=== PATIENT | female | born 1985 | race Two or more races ===

== ENCOUNTER 2019-07-30 15:35 | Inpatient (IN) ==
[2019-07-30] MEDS ORDERED: OXYTOCIN 30 UNITS/500 ML BAG IV PRN ×3 (16:19→22:47)
[2019-07-30] MEDS: LACTATED RINGER'S 1,000 ML IV PRN ×2 (16:20→17:22)
[2019-07-30] MEDS ORDERED: fentaNYL citrate 100 MCG/2 ML VIAL ONE (16:29)
[2019-07-30] MEDS ORDERED: ePHEDrine sulfate 50 MG/ML AMP ONE (16:29)
[2019-07-30] MEDS ORDERED: BUPIVACAINE 0.25% 30 ML VIAL ONE (16:29)
[2019-07-30] MEDS ORDERED: fentaNYL 2MCG/ML ROPIV 1.25MG/ML 100 ML BAG EPI ONE (16:30)
[2019-07-30 16:45] LABS: Hematocrit (blood only) 32.8 % (37-47); Hemoglobin 10.7 g/dL (12.0-16.0); Mean Corpuscular Hemoglobin 23.9 pg (25-34); Mean Corpuscular Volume 73.4 fL (80-100); Mean Platelet Volume 11.4 fL (7.4-10.4); Platelet Count 221 K/uL (130-400); RDW Coefficient of Variation 15.5 % (11.5-14.5); Red Blood Count 4.47 M/uL (4.2-5.4); White Blood Count 12.11 K/uL (4.8-10.8)
[2019-07-30] MEDS ORDERED: DEXTROSE 50% 50 ML SYRINGE IV PRN ×2 (16:47→17:15)
[2019-07-30] MEDS ORDERED: SODIUM CHLORIDE 0.9% 1000ML 1,000 ML IV PRN (16:47)
[2019-07-30] MEDS ORDERED: DEXTROSE 5% 1,000 ML IV PRN (16:47)
[2019-07-30] MEDS ORDERED: INSULIN REGULAR 250 UNITS in SODIUM CHLORIDE 0.9% 247.5 ML IV PRN (16:47)
--- NOTE | 2019-07-30 16:49 | History & Physical Report ---
Date of Service July 30, 2019 Assessment & Plan (1) Insulin controlled gestational diabetes mellitus (GDM) during : Q1hr FSBG and manage pr protocol (2) labor in third trimester: SROM/Labor at 36 4/7. No abx as she is known GBS neg. Pitocin augmentation as membranes broken. Epidural on request. History of Present Illness Primary Care Provider: [facility] 34yo @ 36 4/7 with SROM, Labor. GBS known negative. GDM on insulin. Fluid is clear, +FM, +CTX, -VB. Allergies Allergy/AdvReac Type Severity Reaction Status Date / Time No Known Allergies Allergy Verified 07/30/19 14:49 Home Medications Home Medications Medication Instructions Recorded Confirmed Type PNV cmb#95-ferrous fumarate-FA 1 tab PO DAILY 05/15/19 07/30/19 History [] ferrous sulfate [Iron (ferrous 325 mg PO DAILY 05/15/19 07/30/19 History sulfate)] acetone (urine) test #50 ea 06/21/19 07/30/19 Rx blood sugar diagnostic #120 ea 06/21/19 07/30/19 Rx lancets 33 gauge #120 ea 06/21/19 07/30/19 Rx insulin syringe-needle U-100 0.3 #50 ea 07/20/19 07/30/19 Rx mL 31 gauge x 09/28" Patient History Social History Preferred Language: Togolese Communication Ability: Effective [employer]ion Weigher Required: No Beliefs That Will Affect Care: None marital status: marital status details: Codie Funk (34) [phone] Current Living Situation: Family Current Living Situation Comment: no pets current occupational status: unemployed current occupation: homemaker Other Information That Helps Us Care for You: No Feels Safe at Home: Yes Safety Concerns: Feels Safe At This Time Smoking Status: Never smoker Second Hand Exposure: No ; Hx Alcohol Use: No Hx Substance Use: No Review of Systems All systems reviewed & are unremarkable except as noted in HPI & below Physical Exam Constitutional: WD/WN, vitals as above Eyes: PERRL, conjunctivae normal, anicteric sclerae ENMT: external ear and nose normal, oropharynx normal Neck: supple Respiratory: normal respiratory effort and able to speak in complete sentences; no respiratory distress Cardiovascular: Rate/Rhythm: regular rate and regular rhythm Gastrointestinal (Abdomen): Gravid / AGA, nontender Musculoskeletal: no cyanosis or clubbing, extremities motor strength 5/5 Skin: no rashes, warm and dry Neurologic: patellar DTR's 2+ bilat, sensation intact Psychiatric: A+Ox3, euthymic affect Genitourinary: Speculum/Bimanual Exam: no vaginal lesions, no vaginal bleeding and uterus nontender OB Exam Abdomen: + vertex (normal vertex presentation confirmed by exam), + estimated weight (6-7) and + regular contractions (Q3) Manual OB Exam: + cervical dilation 3 cm, + cervical effacement 50%, + station -2 and + amniotic fluid clear OB Exam Monitor Tracing: + external FHT monitor used, + external uterine monitor used and + category I Lymphatic: no cervical or axillary lymphadenopathy Results & Data Vital Signs (Past 12 Hours) Vital Signs Temp Pulse Resp BP 07/30/19 16:30 18 07/30/19 16:00 18 07/30/19 15:57 98.2 F 18 07/30/19 15:48 104 H 119/77 Coding Level of Care Code None Diagnoses Insulin controlled gestational diabetes mellitus (GDM) during O24.414 Trimester: third trimester labor in third trimester O60.14X0 Fetus number: single or unspecified fetus labor delivery status: with delivery in third trimester (1) Insulin controlled gestational diabetes mellitus (GDM) during Trimester: third trimester Qualified Code(s): O24.414 - Gestational diabetes mellitus in , insulin controlled (2) labor in third trimester Fetus number: single or unspecified fetus labor delivery status: with delivery in third trimester Qualified Code(s): O60.14X0 - labor third trimester with delivery third trimester, not applicable or unspecified
--- NOTE | 2019-07-30 16:51 | Anesthesiology Consultation ---
Date of Service July 30, 2019 Assessment & Plan (1) Insulin controlled gestational diabetes mellitus (GDM) during : (2) : Chart Review Chart Review: Acceptable Risk for Surgery and Acceptable Risk for Labor Epidural Consults Requested none ASA [id number] Proposed Anesthesia Anesthesia Type: CSE Risk / Benefits Reviewed With: PT / POA / Parent / Guardian, Accepts Plan and Informed Consent Obtained History Surgery labor epidural Height/Weight Height: 5 ft 8 in Weight: 78.471 kg Allergies Allergy/AdvReac Type Severity Reaction Status Date / Time No Known Allergies Allergy Verified 07/30/19 14:49 Medications Home Medications Medication Instructions Recorded Confirmed Last Taken PNV cmb#95-ferrous fumarate-FA 1 tab PO DAILY 05/15/19 07/30/19 07/29/19 [] ferrous sulfate [Iron (ferrous 325 mg PO DAILY 05/15/19 07/30/19 07/29/19 sulfate)] acetone (urine) test #50 ea 06/21/19 07/30/19 Unknown blood sugar diagnostic #120 ea 06/21/19 07/30/19 Unknown lancets 33 gauge #120 ea 06/21/19 07/30/19 Unknown insulin syringe-needle U-100 0.3 #50 ea 07/20/19 07/30/19 Unknown mL 31 gauge x 09/28" Active Medications Generic Name Dose Route Start Last Admin Trade Name Freq PRN Reason Stop Dose Admin Lactated Ringer's 1,000 mls @ 125 mls/hr 07/30/19 16:19 07/30/19 16:20 Lr IV 08/01/19 16:18 999 mls/hr .Q8H PRN Administration L&D Protocol Protocol NPO Date Last Intake of Fluids: 07/30/19 Time Last Intake of Fluids: 16:00 Date Last Intake of Solids: 07/30/19 Time Last Intake of Solids: 12:00 Last Intake of Solids Comment: Egss Past Medical History Medical History (Updated 07/30/19 @ 16:51 by Renetta Crenshaw MD) Insulin controlled gestational diabetes mellitus (GDM) during Varicella Exercise / Class Metabolic Activity II 4-5 Yardwork/Stairs/Walk up hill Past Surgical History Surgical History (Updated 07/30/19 @ 16:50 by Abigail Reyes DO) H/O wisdom tooth extraction Past Anesthesia History No Hx of Anesthesia Complications and No Family Hx of Anesthesia Complications History of PONV No Hx of PONV and No Hx of Motion Sickness Social History Smoking Status: Never smoker Hx Alcohol Use: No Hx Substance Use: No Physical Exam Vital Signs Last Vital Signs Temp 36.8 C 07/30/19 15:57 Pulse 104 H 07/30/19 15:48 Resp 18 07/30/19 16:00 BP 119/77 07/30/19 15:48 ENMT Mouth: no TMJ abnormality Thyromental Distance: > or= 3.5 Finger Breadths Mallampati Class: III Neck normal visual inspection and trachea midline; neck extension not limited Respiratory normal respiratory effort Auscultation: lungs clear to auscultation bilaterally Cardiovascular Rate/Rhythm: regular rate and regular rhythm Heart Sounds: no murmur Musculoskeletal Spine: normal cervical ROM Extremities: full ROM of extremities Neurologic moves all extremities Psychiatric Orientation: alert and oriented x 3
[2019-07-30] MEDS ORDERED: GLUCAGON FOR INJ 1 MG VIAL IM PRN (17:15)
[2019-07-30] MEDS ORDERED: GLUCOSE 10 TABS/TUBE PO PRN (17:15)
[2019-07-30] MEDS ORDERED: CARBOHYDRATES FOR HYPOGLYCEMIA PO PRN (17:15)
[2019-07-30] MEDS ORDERED: GLUCOSE 40% GEL 15 GM TUBE PO PRN (17:15)
[2019-07-30] MEDS ORDERED: NALBUPHINE HCL INJ 10 MG/ML AMP IV PRN (17:17)
[2019-07-30] MEDS ORDERED: NALOXONE HCL 0.4 MG/1 ML VIAL/CARP IV PRN (17:17)
[2019-07-30] MEDS ORDERED: PROMETHAZINE HCL 25 MG in SODIUM CHLORIDE 0.9% 50 ML IV PRN (17:17)
[2019-07-30] MEDS ORDERED: DiphenhydrAMINE HCL 50 MG/ML VIAL IV PRN (17:17)
[2019-07-30] MEDS ORDERED: METOCLOPRAMIDE HCL 20 MG in SODIUM CHLORIDE 0.9% 50 ML IV PRN (17:17)
[2019-07-30] MEDS ORDERED: NALOXONE HCL 1 MG in SODIUM CHLORIDE 0.9% 1000ML 1,000 ML IV PRN (17:17)
[2019-07-30] MEDS ORDERED: ePHEDrine sulfate 50 MG/ML AMP IV PRN (17:17)
[2019-07-30] MEDS ORDERED: ONDANSETRON INJ 2 MG/ML 2 ML VIAL IV PRN (17:17)
[2019-07-30] MEDS ORDERED: fentaNYL 2MCG/ML ROPIV 1.25MG/ML 100 ML BAG EPI PRN (17:17)
[2019-07-30 17:20] LABS: Mean Corpuscular Hgb Conc 32.6 g/dL (32-36)
--- NOTE | 2019-07-30 22:11 | Delivery Summary ---
Vaginal Delivery Summary Date of Service July 30, 2019 Vaginal Delivery Summary DIAGNOSES: 1. Clark intrauterine at 36w4d gestation. 2. Spontaneous onset of labor. 3. Group B Streptococcus Neg. PROCEDURE: Spontaneous vaginal delivery and repair of second degree laceration. SURGEON: Renetta Crenshaw MD. PNP: None. ESTIMATED BLOOD LOSS: 300 mL. COMPLICATIONS: None. PLACENTA: Spontaneous and intact with a 3-vessel cord. DISPOSITION: Stable to labor and delivery. DESCRIPTION: The patient pushed well and brought the head to in OA position. The infant's head was allowed to deliver with contraction force and no further active pushing, with the perineum protected during this time. The shoulders delivered easily with a maternal pushing effort. There was no nuchal cord. The left shoulder was anterior. The shoulders and body delivered without any difficulty, and the infant was placed on the maternal abdomen. It was vigorous and moving all extremities, and making respiratory efforts. The cord was doubly clamped by the MD and then cut by the FOB. The placenta delivered spontaneously and was noted to be intact and with a 3VC. The cervix, vagina and perineum were examined and were found to have a second degree la ceration that was repaired in usual fashion with vicryl suture. The fundus was firm and lochia minimal immediately after delivery.
[2019-07-30] MEDS ORDERED: DIPHTHERIA/TETANUS/PERTUSSIS 0.5 ML SYR/VIAL IM ONE (22:47)
[2019-07-30] MEDS ORDERED: BENZOCAINE 20% AER SPR 82.5 GM CAN EXT PRN (22:47)
[2019-07-30] MEDS ORDERED: ACETAMINOPHEN 325 MG TAB PO PRN (22:47)
[2019-07-30] MEDS ORDERED: OXYCODONE/ACETAMINOPHEN 5mg/325mg TAB PO PRN (22:47)
[2019-07-30] MEDS ORDERED: SUPERCREAM 0.870% 15 GM JAR EXT PRN (22:47)
[2019-07-30] MEDS ORDERED: HYDROCORTISONE ACETATE 25 MG SUPP PR PRN (22:47)
--- NOTE | 2019-07-31 05:57 | Obstetrical Progress Note ---
Date of Service <Rose Reichtian - Last Filed: 07/31/19 06:50> July 31, 2019 Assessment & Plan <Rose Lopez - Last Filed: 07/31/19 06:50> (1) Encounter for care and examination after delivery: 34 yo PPD #1 following at 36.4 weeks, with complaints of poor milk production and chills. - no measured fevers. - Will have clinical documentation specialist see her today for help with . - Will continue routine care. - following d/c will require f/u with Dr. Crenshaw for visit. Subjective <Rose ReichDO tian - Last Filed: 07/31/19 06:50> 34 yo female ; PPD # 1 following vaginal delivery at 36.4weeks; doing well this AM; no abdominal cramping/pain; voiding well; tolerating meals overnight, able to ambulate some within the room. Reports that is not going well and that she feels she is not producing. Also felt chilly overnight but did not have any measured fevers. Review of Systems Constitutional: denies fever, sweats, headache Respiratory: denies SOB, difficulty breathing Cardiac: denies CP, chest palpitations, chest pressure Breast: denies breast pain : denies dysuria Physical Exam <Rsoe Lopez - Last Filed: 07/31/19 06:50> General: patient is alert and oriented, in NAD Cardiac: +S1/S2, no murmurs rubs or gallops Respiratory: lungs CTA b/l, anteriorly and posteriorly, no wheezes rales or rhonchi, no increased work of breathing, symmetric chest rise, no respiratory distress Abdomen: soft, NT, +bowel sounds Uterus: uterine fundus firm, palpable below the level of the umbilicus Lower Extremities: no LE edema or swelling, no deep calf pain, Tiffani's sign negative b/l Results & Data <Rose ReichDO tian - Last Filed: 07/31/19 06:50> Vital Signs (Past 12 Hours) Vital Signs Temp Pulse Pulse Resp BP BP Pulse Ox 07/31/19 03:29 37.3 C 80 16 95/60 L 07/31/19 00:55 36.6 C 79 18 93/58 L 07/31/19 00:26 81 100/58 L 07/31/19 00:11 82 18 99/58 L 07/30/19 23:56 82 103/64 07/30/19 23:41 83 18 101/60 07/30/19 23:26 89 104/68 07/30/19 23:11 92 H 18 108/61 07/30/19 22:56 81 18 103/64 07/30/19 22:41 86 18 98/68 L 07/30/19 22:27 86 18 109/74 07/30/19 22:13 94 H 100 07/30/19 22:11 99 H 18 97/64 L 07/30/19 22:08 105 H 100 07/30/19 22:03 87 100 07/30/19 21:58 91 H 100 07/30/19 21:56 96 H 110/62 07/30/19 21:53 84 100 07/30/19 21:51 94 H 87 L 07/30/19 21:48 100 H 100 07/30/19 21:43 85 100 07/30/19 21:41 91 H 108/65 07/30/19 21:38 86 100 07/30/19 21:33 81 100 07/30/19 21:28 83 100 07/30/19 21:26 82 101/57 L 07/30/19 21:23 83 100 07/30/19 21:18 82 100 07/30/19 21:13 84 100 07/30/19 21:11 83 92/53 L 07/30/19 21:08 89 100 07/30/19 21:03 102 H 100 07/30/19 20:58 89 100 07/30/19 20:57 36.7 C 81 18 109/66 07/30/19 20:53 85 100 07/30/19 20:48 88 100 07/30/19 20:43 96 H 100 07/30/19 20:41 84 111/69 07/30/19 20:38 81 100 07/30/19 20:33 94 H 100 07/30/19 20:28 86 100 07/30/19 20:26 82 100/59 L 07/30/19 20:23 89 100 07/30/19 20:18 92 H 100 07/30/19 20:13 81 100 07/30/19 20:11 81 107/65 07/30/19 20:08 91 H 100 07/30/19 20:03 107 H 100 07/30/19 19:58 88 100 07/30/19 19:56 88 108/69 07/30/19 19:53 87 100 07/30/19 19:48 87 100 07/30/19 19:43 86 100 07/30/19 19:42 89 90/53 L 07/30/19 19:38 87 100 07/30/19 19:33 99 H 100 07/30/19 19:28 90 100 07/30/19 19:26 86 97/56 L 07/30/19 19:23 85 100 07/30/19 19:18 87 100 07/30/19 19:13 87 100 07/30/19 19:11 36.6 C 93 H 18 102/58 L 07/30/19 19:08 91 H 100 07/30/19 19:03 101 H 100 07/30/19 19:00 18 07/30/19 18:58 89 100 07/30/19 18:56 90 112/66 07/30/19 18:53 89 100 07/30/19 18:48 83 100 07/30/19 18:46 77 112/57 L 07/30/19 18:43 82 81/52 L 100 07/30/19 18:41 81 89/54 L 07/30/19 18:38 76 100 07/30/19 18:33 77 100 07/30/19 18:30 18 07/30/19 18:28 98 H 103/63 100 07/30/19 18:23 82 100 07/30/19 18:18 95 H 100 07/30/19 18:13 81 100 07/30/19 18:11 87 91/57 L 07/30/19 18:08 86 100 07/30/19 18:03 83 100 07/30/19 18:00 18 07/30/19 17:58 88 100 Laboratory Results Laboratory Results - last 24 hr 07/30/19 07/30/19 07/30/19 16:27 16:51 17:49 WBC 12.11 H RBC 4.47 Hgb 10.7 L Hct 32.8 L MCV 73.4 L MCH 23.9 L MCHC 32.6 RDW Std Deviation 41.0 RDW Coeff of Priscilla 15.5 H Plt Count 221 MPV 11.4 H POC Glucose 90 84 07/30/19 07/30/19 07/30/19 18:53 19:54 21:00 WBC RBC Hgb Hct MCV MCH MCHC RDW Std Deviation RDW Coeff of Priscilla Plt Count MPV POC Glucose 96 94 95 Medications Administered Current Medications Acetaminophen (Tylenol) 650 mg PO Q6H PRN PRN Reason: Pain/LONGORIA/Fever Stop: 08/29/19 22:46 Benzocaine (Dermoplast Pain Relieving [place]) 1 appln EXT PRN PRN PRN Reason: Perineal Discomfort Stop: 08/29/19 22:46 Last Admin: 07/31/19 03:25 Dose: 1 appln Documented by: Cocaine HCl (Supercream 0.870%) 1 gm EXT BID PRN PRN Reason: Hemorrhoidal Inflammation Stop: 08/13/19 22:46 Docusate Sodium (Colace) 100 mg PO DAILY@08,21 THEA Stop: 08/30/19 07:59 Hydrocortisone (Anusol Hc) 25 mg DC BID PRN PRN Reason: Hemorrhoidal Inflammation Stop: 08/29/19 22:46 Lactated Ringer's (Lr) 1,000 mls @ 125 mls/hr IV .Q8H PRN; Protocol PRN Reason: L&D Protocol Stop: 08/01/19 16:18 Last Admin: 07/30/19 17:22 Dose: 125 mls/hr Documented by: Oxytocin (Pitocin) 30 units in 500 mls @ 333.333 mls/hr IV .Q1H30M PRN; Protocol PRN Reason: Bleeding Control Stop: 08/29/19 16:18 Oxytocin (Pitocin) 30 units in 500 mls @ 333.333 mls/hr IV .Q1H30M PRN; Protocol PRN Reason: Bleeding Control Stop: 08/29/19 22:46 Ibuprofen (Motrin) 600 mg PO Q4H PRN PRN Reason: Pain/LONGORIA/Cramping/Fever Stop: 08/29/19 22:46 Oxycodone/Acetaminophen (Percocet 5mg/325mg) 1 tab PO Q4H PRN PRN Reason: Pain not relieved by... Stop: 08/13/19 22:46 Prenat Multivit/Flat Finisher/Iron/Folic Ac ( Vitamin) 1 tab PO DAILY@08 [facility] Stop: 08/30/19 07:59 <Renetta Crenshaw MD - Last Filed: 07/31/19 07:29> Co-Signing Physician Notes I have reviewed the resident's note and examined the patient myself, and agree with the note above. Resident Activity Tracking <Rose Lopez DO - Last Filed: 07/31/19 06:50> Resident Involvement: Resident Care Provided Care Provided: OB Delivery
[2019-07-31 07:51] LABS: Hematocrit (blood only) 28.1 % (37-47); Hemoglobin 9.3 g/dL (12.0-16.0); Mean Corpuscular Hemoglobin 24.2 pg (25-34); Mean Corpuscular Hgb Conc 33.1 g/dL (32-36); Mean Corpuscular Volume 73.2 fL (80-100); Mean Platelet Volume 11.3 fL (7.4-10.4); Platelet Count 196 K/uL (130-400); RDW Coefficient of Variation 15.4 % (11.5-14.5); RDW Standard Deviation 40.8 fL (36.4-46.3); Red Blood Count 3.84 M/uL (4.2-5.4); White Blood Count 15.46 K/uL (4.8-10.8)
[2019-07-31] MEDS ORDERED: PRENATAL VITAMIN 1 TAB PO SCH (08:00)
[2019-07-31] MEDS: IBUPROFEN 600 MG TAB PO PRN ×2 (08:49→20:14)
[2019-07-31] MEDS: DOCUSATE SODIUM 100 MG CAP PO SCH ×2 (08:50→20:14)
--- NOTE | 2019-07-31 09:18 | Anesthesia Procedure Note ---
Date of Service July 31, 2019 Anesthesia Post Epidural Note Vital Signs Vital Signs: Temp Pulse Resp BP Pulse Ox 98.4 F 84 18 99/62 L 100 07/31/19 08:10 07/31/19 08:10 07/31/19 08:10 07/31/19 08:10 07/30/19 22:13 Pain Intensity Lower Back: Pain Intensity: 0 Notes Mental Status: alert / awake / arousable and participated in evaluation Nausea / Vomiting: adequately controlled Pain: adequately controlled Airway Patency, RR, SpO2: stable & adequate BP & HR: stable & adequate Hydration State: stable & adequate Neuraxial Anesthesia: was administered and sensory block is resolving Anesthetic Complications: no major complications apparent and Pt Satisfied with anesthetic care Epidural: Removed without complications and With tip intact
== END 2019-07-31 22:35 | disposition home or self-care (01) | DRG 807 ==
LOC: OPB 15:35 → 4S1 15:35 → 4S2 07-31 01:00